=== PATIENT | female | born 1965 | race Caucasian/White ===

== ENCOUNTER 2016-12-23 12:39 | Emergency (ER) | payer MEDICARE ==
[~2016-12-23] VITALS: Ht 154.9 cm; Wt 59.0 kg
[~2016-12-23 12:39] MED LIST: ALBUTEROL0.09 MG/A2 INH; BENTYL10 MG PO; BIOTIN1 MG PO; BRIN10TA PO; CIPROFLOXACIN500 MG PO; CLINDAMYCIN HC150 MG PO; CLINDAMYCIN HC300 MG PO; COLACE100 MG/10 PO; CORDROL20 MG PO; CORTISPORIN SUS10 ML OT; CREON 60,000U/1 CAP PO; CREON 60000 U-11 ECC; DIFLUCAN150 MG PO; FERROUS SULFATE1 SOL; FIORICET 325 MG1 TAB PO; FLAGYL500 MG PO; FLONASE ALLERG9.9 ML NAS; FLONASE ALLERG9.9 ML NS; FLUOXETINE PO; Fioricet 325 MG1 TAB PO; Fiorinal,Butalb1 TAB PO; GEODON40 MG PO; GLYCOLAX17 GM/PACK PO; HYDROCODONE BIT1 T11 PO; KLONOPIN WAFER0.5 MG; KLONOPIN1 MG PO; LAMICTAL100 MG PO; LATU80TA PO; LEVAQUIN750 M1 PO; LEVAQUIN750 MG PO; MACROBID100 M1 PO; MOTRIN800 MG PO; MULTIPLE VITAMI1 CAP PO; MULTIVITAMIN WITH; MULTIVITAMIN1 CTB PO; NASONEX0.05 MG/AC NAS; NEURONTIN400 MG PO; NORFLEX100 MG PO; OMNICEF300 MG PO; OXY IR5 MG PO; OXYCODONE10 MG PO; OXYCONTIN10 MG PO; PERCOCET 325 MG1 TA2 PO; PERCOCET 325 MG1 TA3; PERCOCET 325 MG1 TA3 PO; PHENERGAN25 M1 PO; PREDNICOT20 MG PO; PREDNISONE10 MG PO; PREDNISONE20 MG PO; PRILOSEC OTC20 MG; PRILOSEC20 MG PO; PRISTIQ50 MG PO; PROAIR HFA0.09 MG/AC INH; PROZAC40 MG; PYRIDIUM200 MG PO; ROBITUSSIN AC 110 ML PO; SEROQUEL400 MG; SOMA250 MG; TESSALON PERLE200 MG PO; TRAMADOL HCL50 MG PO; TRAZODONE150 MG PO; VITAMIN D32000 IU PO; ZITHROMAX Z PA250 MG PO; ZOFRAN ODT4 MG SL; ZOFRAN4 MG PO; [UNRECOGNIZED DRUG - CODE] PO
== END 2016-12-23 12:45 | disposition left against medical advice (07) ==
LOC: ED 12:39
DX: Z00.8 Encounter for other general examination (principal); G89.29 Other chronic pain; M54.5 Low back pain; F17.200 Nicotine dependence, unspecified, uncomplicated; Z90.710 Acquired absence of both cervix and uterus; Z98.890 Other specified postprocedural states; Z79.899 Other long term (current) drug therapy; Z88.0 Allergy status to penicillin; Z88.2 Allergy status to sulfonamides; Z88.8 Allergy status to other drugs, medicaments and biological substances; Z91.041 Radiographic dye allergy status; Z88.6 Allergy status to analgesic agent; Z53.21 Procedure and treatment not carried out due to patient leaving prior to being seen by health care provider

== ENCOUNTER 2016-12-27 02:10 | Emergency (ER) | payer MEDICARE ==
[~2016-12-27] VITALS: Ht 154.9 cm; Wt 68.0 kg
[2016-12-27] MEDS ORDERED: ALPRAZOLAM0.5 M3 PO (02:28)
[2016-12-27] MEDS ORDERED: DESVENLAFAXINE PO (02:28)
[2016-12-27] MEDS ORDERED: MIRTAZAPINE45 MG PO (02:28)
[2016-12-27] MEDS ORDERED: GABAPENTIN800 MG PO (02:28)
[2016-12-27] MEDS ORDERED: CLONAZEPAM0.5 M2 PO (02:29)
[2016-12-27] MEDS ORDERED: PERCOCET 325 MG1 TA3 PO (02:29)
[2016-12-27] MEDS ORDERED: REXULTI3 MG PO (02:29)
[2016-12-27 03:44] LABS: BASO # 0.1 10*3/uL (0.0-0.1); BASO % 0.9 % (0.0-1.0); EOS # 0.3 10*3/uL (0.0-0.4); HEMATOCRIT 40.3 % (37.0-47.0); HEMOGLOBIN 13.2 g/dl (12.0-16.0); LYMPH # 2.3 10*3/uL (1.3-4.4); LYMPH % 35.4 % (27.0-41.0); MEAN CELL VOLUME 96.4 fl (81.0-99.0); MEAN CORPUSCULAR HGB 31.6 pg (27.0-31.0); MEAN CORPUSCULAR HGB CONC 32.8 g/dl (33.0-37.0); MEAN PLATELET VOLUME 9.5 fl (9.6-12.3); MONO # 0.5 10*3/uL (0.1-1.0); MONO % 8.2 % (3.0-9.0); NEUT # 3.3 10*3/uL (2.3-7.9); NEUT % 50.3 % (47.0-73.0); PLATELET COUNT AUTOMATED 229 10*3/uL (130-400); RED BLOOD COUNT 4.18 10*6/uL (4.10-5.10); RED CELL DISTRI WIDTH 12.7 % (0-14.5); WHITE BLOOD COUNT 6.6 10*3/uL (4.8-10.8)
[2016-12-27 03:56] LABS: BILIRUBIN NEGATIVE (NEGATIVE); BLOOD NEGATIVE (NEGATIVE); CLARITY CLEAR (CLEAR); COLOR YELLOW (YELLOW); GLUCOSE NEGATIVE (NEGATIVE); KETONE NEGATIVE (NEGATIVE); LEUKO ESTERASE NEGATIVE (NEGATIVE); NITRITE NEGATIVE (NEGATIVE); PH 6.5 (5.0-9.0); PROTEIN NEGATIVE (NEGATIVE); SPECIFIC GRAVITY <= 1.005 (1.005-1.030); UROBILINOGEN 0.2 E.U./dl (0.2-1.0)
[2016-12-27 04:00] LABS: ALBUMIN 3.5 gm/dl (3.1-4.5); ALKALINE PHOSPHATASE 89 U/L (45-117); BUN 15 mg/dl (7-24); CARBON DIOXIDE 29 mmol/L (21-32); CHLORIDE 109 mmol/L (98-107); EST GLOM FILT AFRICAN AMERICAN > 60 ml/min; GLUCOSE 136 mg/dL (65-99); POTASSIUM 4.4 mmol/L (3.5-5.1); SGOT/AST 27 IU/L (3-35); SGPT/ALT 20 U/L (12-78); SODIUM 146 mmol/L (136-145); TOTAL PROTEIN 6.8 gm/dL (6.4-8.2)
[2016-12-27 04:02] LABS: BILIRUBIN, TOTAL < 0.1 mg/dl (0.2-1.0)
[2016-12-27 04:03] LABS: URINE AMPHETAMINES < 1000 (1000ng/ml); URINE BARBITURATES < 200 (200ng/ml); URINE COCAINE > 300 (300ng/ml)
[2016-12-27 04:05] LABS: EPITHELIAL CELLS 0-5; URINE REFLEX COMMENT NO (NO); WBC 0-2 wbc/hpf (0-5)
== END 2016-12-27 20:20 | disposition home health service (06) ==
LOC: ED 02:10
PROVIDERS: Emergency Medicine
DX: R45.851 Suicidal ideations (principal); F41.0 Panic disorder [episodic paroxysmal anxiety]; Z88.0 Allergy status to penicillin; Z88.1 Allergy status to other antibiotic agents; Z88.2 Allergy status to sulfonamides; Z91.041 Radiographic dye allergy status; Z88.6 Allergy status to analgesic agent; Z79.899 Other long term (current) drug therapy

== ENCOUNTER 2017-02-06 13:44 | Emergency (ER) | payer MEDICARE ==
[~2017-02-06] VITALS: Ht 154.9 cm; Wt 75.7 kg
[~2017-02-06 13:44] MED LIST changes: +ALPRAZOLAM0.5 M3 PO; +CLONAZEPAM0.5 M2 PO; +DESVENLAFAXINE PO; +GABAPENTIN800 MG PO; +MIRTAZAPINE45 MG PO; +REXULTI3 MG PO
[2017-02-06 14:05] LABS: BILIRUBIN NEGATIVE (NEGATIVE); BLOOD NEGATIVE (NEGATIVE); CLARITY CLEAR (CLEAR); COLOR YELLOW (YELLOW); GLUCOSE NEGATIVE (NEGATIVE); KETONE NEGATIVE (NEGATIVE); LEUKO ESTERASE NEGATIVE (NEGATIVE); NITRITE NEGATIVE (NEGATIVE); PH 6.5 (5.0-9.0); PROTEIN NEGATIVE (NEGATIVE); SPECIFIC GRAVITY <= 1.005 (1.005-1.030); UROBILINOGEN 0.2 E.U./dl (0.2-1.0)
[2017-02-06 14:07] LABS: BASO # 0.1 10*3/uL (0.0-0.1); BASO % 0.8 % (0.0-1.0); EOS # 0.4 10*3/uL (0.0-0.4); EOS % 5.5 % (1.0-4.0); HEMATOCRIT 39.4 % (37.0-47.0); HEMOGLOBIN 12.8 g/dl (12.0-16.0); LYMPH # 1.6 10*3/uL (1.3-4.4); LYMPH % 20.9 % (27.0-41.0); MEAN CELL VOLUME 97.3 fl (81.0-99.0); MEAN CORPUSCULAR HGB 31.6 pg (27.0-31.0); MEAN CORPUSCULAR HGB CONC 32.5 g/dl (33.0-37.0); MEAN PLATELET VOLUME 9.2 fl (9.6-12.3); MONO # 0.4 10*3/uL (0.1-1.0); MONO % 5.6 % (3.0-9.0); NEUT # 5.2 10*3/uL (2.3-7.9); NEUT % 66.9 % (47.0-73.0); PLATELET COUNT AUTOMATED 258 10*3/uL (130-400); RED BLOOD COUNT 4.05 10*6/uL (4.10-5.10); RED CELL DISTRI WIDTH 13.4 % (0-14.5); WHITE BLOOD COUNT 7.7 10*3/uL (4.8-10.8)
[2017-02-06] MEDS ORDERED: BUPROPION HCL300 MG PO (14:07)
[2017-02-06 14:15] LABS: URINE AMPHETAMINES < 1000 (1000ng/ml); URINE BARBITURATES < 200 (200ng/ml); URINE COCAINE < 300 (300ng/ml)
[2017-02-06 14:24] LABS: RBC 0-2 rbc/hpf (0-2); URINE REFLEX COMMENT NO (NO); WBC 0-2 wbc/hpf (0-5)
[2017-02-06 14:27] LABS: ALBUMIN 3.7 gm/dl (3.1-4.5); ALKALINE PHOSPHATASE 97 U/L (45-117); BILIRUBIN, TOTAL 0.3 mg/dl (0.2-1.0); BUN 10 mg/dl (7-24); CARBON DIOXIDE 27 mmol/L (21-32); CHLORIDE 108 mmol/L (98-107); EST GLOM FILT AFRICAN AMERICAN > 60 ml/min; GLUCOSE 75 mg/dL (65-99); POTASSIUM 4.3 mmol/L (3.5-5.1); SGOT/AST 93 IU/L (3-35); SGPT/ALT 69 U/L (12-78); SODIUM 141 mmol/L (136-145); TOTAL PROTEIN 7.6 gm/dL (6.4-8.2)
[2017-02-06 14:34] LABS: CKMB 8.7 ng/ml (0.5-3.6); TROPONIN I < 0.015 ng/ml (<0.045)
[2017-02-06] MEDS ORDERED: PRISTIQ100 MG PO (16:54)
[2017-02-06] MEDS ORDERED: NEURONTIN800 MG PO (16:54)
[2017-02-06] MEDS ORDERED: REMERON15 M2 PO (16:55)
[2017-02-06] MEDS ORDERED: ESKALITH,LITHI300 MG PO (16:55)
[2017-02-06] MEDS ORDERED: AMBIEN5 MG PO (17:02)
[2017-02-06] MEDS ORDERED: LITHIUM CARBON600 MG PO (17:02)
[2017-02-06] MEDS ORDERED: GEODON40 MG PO (17:02)
[2017-02-06] MEDS ORDERED: COLACE100 MG PO (17:02)
[2017-02-06] MEDS ORDERED: CREON 120000 U-1 ECC PO (17:03)
[2017-02-06] MEDS ORDERED: KLONOPIN0.5 MG PO (17:03)
== END 2017-02-06 18:11 | disposition home health service (06) ==
LOC: ED 13:44
PROVIDERS: Internal Medicine
DX: R45.851 Suicidal ideations (principal); F19.10 Other psychoactive substance abuse, uncomplicated; F17.200 Nicotine dependence, unspecified, uncomplicated; Z88.0 Allergy status to penicillin; Z88.1 Allergy status to other antibiotic agents; Z88.2 Allergy status to sulfonamides; Z88.6 Allergy status to analgesic agent; Z88.8 Allergy status to other drugs, medicaments and biological substances; Z91.041 Radiographic dye allergy status; Z79.899 Other long term (current) drug therapy

== ENCOUNTER 2017-06-23 02:29 | Emergency (ER) | payer MEDICARE, MEDICAID ==
[~2017-06-23] VITALS: Ht 154.9 cm; Wt 68.0 kg
[~2017-06-23 02:29] MED LIST changes: +AMBIEN5 MG PO; +BUPROPION HCL300 MG PO; +COLACE100 MG PO; +CREON 120000 U-1 ECC PO; +ESKALITH,LITHI300 MG PO; +KLONOPIN0.5 MG PO; +LITHIUM CARBON600 MG PO; +NEURONTIN800 MG PO; +PRISTIQ100 MG PO; +REMERON15 M2 PO
[2017-06-23] MEDS ORDERED: IBU800 MG PO (02:54)
[2017-06-23] MEDS ORDERED: PREDNISONE50 MG PO (02:54)
[2017-06-23] MEDS ORDERED: LEVAQUIN750 M1 PO (02:54)
[2017-06-23] MEDS ORDERED: Zofran4 MG SL (03:24)
== END 2017-06-23 03:13 | disposition home or self-care (01) ==
LOC: ED 02:29
DX: J06.9 Acute upper respiratory infection, unspecified (principal); H92.01 Otalgia, right ear; F17.200 Nicotine dependence, unspecified, uncomplicated; Z88.0 Allergy status to penicillin; Z88.2 Allergy status to sulfonamides; Z88.1 Allergy status to other antibiotic agents; Z88.6 Allergy status to analgesic agent; Z88.8 Allergy status to other drugs, medicaments and biological substances; Z79.899 Other long term (current) drug therapy

== ENCOUNTER 2017-06-29 15:43 | Emergency (ER) | payer MEDICARE, MEDICAID ==
[~2017-06-29] VITALS: Ht 154.9 cm; Wt 68.0 kg
[~2017-06-29 15:43] MED LIST changes: +IBU800 MG PO; +PREDNISONE50 MG PO; +Zofran4 MG SL
[2017-06-29] MEDS ORDERED: CIPRODEX 0.3%-7.5 ML OT (16:36)
== END 2017-06-29 16:42 | disposition home or self-care (01) ==
LOC: ED 15:43
DX: H92.01 Otalgia, right ear (principal); R03.0 Elevated blood-pressure reading, without diagnosis of hypertension; H60.91 Unspecified otitis externa, right ear; F17.200 Nicotine dependence, unspecified, uncomplicated; G89.29 Other chronic pain; M54.5 Low back pain; K85.90 Acute pancreatitis without necrosis or infection, unspecified; M54.16 Radiculopathy, lumbar region; Z79.899 Other long term (current) drug therapy; Z88.0 Allergy status to penicillin; Z88.2 Allergy status to sulfonamides; Z91.041 Radiographic dye allergy status; Z88.1 Allergy status to other antibiotic agents; Z88.8 Allergy status to other drugs, medicaments and biological substances

== ENCOUNTER 2017-08-11 15:01 | Emergency (ER) | payer MEDICARE, MEDICAID ==
[~2017-08-11] VITALS: Ht 154.9 cm; Wt 71.7 kg
[~2017-08-11 15:01] MED LIST changes: +CIPRODEX 0.3%-7.5 ML OT
[2017-08-11] MEDS ORDERED: CYCLOBENZAPRINE5 M3 PO (17:31)
== END 2017-08-11 17:44 | disposition home or self-care (01) ==
LOC: ED 15:01
DX: M54.40 Lumbago with sciatica, unspecified side (principal); F17.200 Nicotine dependence, unspecified, uncomplicated; Z88.0 Allergy status to penicillin; Z88.1 Allergy status to other antibiotic agents; Z88.2 Allergy status to sulfonamides; Z91.041 Radiographic dye allergy status